=== PATIENT | male | born 1995 | race Caucasian/White ===

== ENCOUNTER 2018-02-06 13:01 | Emergency (ER) | payer SELFPAY ==
[2018-02-06 13:06] VITALS: BP 128/66; BMI 24.4
[2018-02-06 13:34] LABS: BASOPHILS % (AUTO) 0.7 % (0.2-1.0); EOSINOPHILS # (AUTO) 0.1 x10^3/uL (0.0-0.2); HEMATOCRIT 44.9 % (42.0-54.0); HEMOGLOBIN 15.7 g/dL (13.5-18.0); LYMPHOCYTES # (AUTO) 1.5 X10^3/uL (1.3-2.9); LYMPHOCYTES % (AUTO) 33.3 % (21.0-51.0); MEAN CORPUSCULAR HEMOGLOBIN 31.5 pg (27.0-34.0); MEAN PLATELET VOLUME 6.8 fL (7.4-11.0); MONOCYTES # (AUTO) 0.4 x10^3/uL (0.3-0.8); MONOCYTES % (AUTO) 9.5 % (0.0-13.0); NEUTROPHILS # (AUTO) 2.5 x10^3/uL (2.2-4.8); NEUTROPHILS % (AUTO) 53.5 % (42.0-75.0); PLATELET COUNT 284 X10^3/uL (150.0-450.0); RED BLOOD COUNT 4.99 X10^6/uL (4.7-6.0); RED CELL DISTRIBUTION WIDTH 12.6 % (11.6-16.5); WHITE BLOOD COUNT 4.6 X10^3/uL (3.6-10.0)
[2018-02-06 13:40] LABS: ALANINE AMINOTRANSFERASE 20 Units/L (12-78); ALBUMIN 4.1 g/dL (3.4-5.0); ALKALINE PHOSPHATASE 67 Units/L (46-116); AMYLASE 72 Units/L (25-115); ASPARTATE AMINO TRANSFERASE 13 Units/L (15-37); BLOOD UREA NITROGEN 12 mg/dL (7-18); CHLORIDE 103 mmol/L (98-107); CREATININE 0.92 mg/dL (0.70-1.30); LIPASE 112 Units/L (73-393); SODIUM 139 mmol/L (136-145); eGFR BLACK RACES > 60 (>60); eGFR NON BLACK RACES > 60 (>60)
[2018-02-06] MEDS ORDERED: ZOFRAN INJ 4 MG VIAL IVP ONE (14:05)
[2018-02-06] MEDS ORDERED: PEPCID 20 MG IV PREMIX* 20 MG/50 ML BAG IV ONE ×2 (14:05→14:10)
[2018-02-06] MEDS ORDERED: TORADOL 30 MG VIAL IVP ONE (14:05)
--- NOTE | 2018-02-06 14:05 | DR.ABDMALE ---
HPI - Time seen Time seen: 13:45 - PCP Primary Care Physician: carlyle - HPI comment HPI Comment: PAIN INCREASES WITH FOOD INTAKE. NO FEVER. NO DYSURIA OR HEMATURIA. - Complaint Chief Complaint Doctors Comments: RUQ ABDOMINAL PAIN TIMES ONE 8 DAYS THAT IS GETTING WORSE. Chief Complaint:: pt stated he has been right upper abd pain for 1.5 weeks. its hurts more after he eats and very nauseated. - Reviewed Nurses Notes Review: Yes - Mode of arrival Mode of Arrival: Ambulatory - Timing Onset of Chief Complaint: 01/29/18 Came on: Suddenly - Duration Duration: Constant Duration: Days - Location Location: RUQ - Severity Severity: Moderate - Quality Quality: Sharp - Context Onset: Suddenly History of: None - Modifying factors Worsening Factors: Food Improving Factors: Nothing - Associated signs and symptoms Associated Signs and Symptoms: Nausea PMH - PMH Past Medical History: No Past Surgical History: No - Family History History of Family Medical Conditions: No - Social History Does patient currently use any type of tobacco product: No Have you used tobacco products in the last 12 months: No Type of Tobacco Use: None Does any household member use tobacco: No Alcohol Use: None Do you use any recreational Drugs:: No Lives With: Family Lives Where: Home - infectious screening In the last 2 months have you had wt loss of >10#?: NO Have you had fever, night sweats or hemotysis?: No Have you traveled outside the country in the last 6 months?: No Isolation: Standard ROS - Review of Systems Constitutional: No Symptoms Reported Eyes: No Symptoms Reported ENTM: No Symptoms Reported Respiratoy: No Symptoms Reported Cardiovascular: No Symptoms Reported Gastrointestinal/Abdominal: Abdominal Pain (RUQ), Nausea Genitourinary: No Symptoms Reported. negative: Dysuria, Frequency, Hematuria Neurological: No Symptoms Reported Musculoskeletal: No Symptoms Reported Integumentary: No Symptoms Reported Hematologic/Lymphatic: No Symptoms Reported Endocrine: No Symptoms Reported All Other Systems: Reviewed and Negative PE - Vital Signs Vital Signs: Temp Pulse Resp BP Pulse Ox 02/06/18 13:01 98.9 F 87 16 128/66 99 12/06/12 09:44 144/67 - General Limitations: No Limitations General Appearance: Alert - Head Head Exam: Normal Inspection - Eyes Eye exam: Normal Appearance - ENT ENT Exam: Normal External Ear Exam - Neck Neck Exam: Normal Inspection - Chest Chest Inspection: Symmetric Chest Wall Rise - Respiratory Respiratory Exam: Normal Lung Sounds Bilat Respiratory Exam: Bilateral Clear to Auscultation - Cardiovascular Cardiovascular Exam: Regular Rate, Normal Rhythm, Normal Heart Sounds - Abdominal Exam Abdominal Exam: Normal Bowel Sounds, Soft, Tenderness Abdominal Tenderness: RUQ, Moderate - Rectal Rectal Exam: Deferred - Back Back Exam: Normal Inspection - Extremeties Extremities Exam: Normal Inspection - Exam: Male: Deferred - Neurologic Neurological Exam: Alert, Oriented X3 - Psychiatric Psychiatric Exam: Normal Affect, Normal Mood - Skin Skin Exam: Normal Color MDM - Additional Information Obtained From Additional information provided by: Family - Differential Diagnosis Differential Diagnosis: Bowel Obstruction, Cholcystitis, Cholelethiasis, Diverticular disease, Gastritus/PUD, Gastroenteritis, Pancreatitis, Urinary tract infection, Urolithiasis Course - Treatment Treatment: SEE ORDERS. - Reevaluation 1st: Improved (PAIN IMPROVE WITH MEDS IN ED.) - Consultation Consultation Comments: CONSULT SURGERY. DR. GUERRA IN ED TO SEE PATIENT.IF US GB NEGATIVE, SEE HIM IN AM IN THE OFFICE. TO D/C HOME WITH ANDREWIA. - Education/Counseling Education/Counseling: Patient, Family, Education Educated On: Treatment, Diagnosis, Needs for Follow Up ROR - Labs Reviewed Laboratory Results Reviewed?: Yes Result Diagrams: 02/06/18 13:20 02/06/18 13:20 Laboratory: WBC 4.6 X10^3/uL (3.6-10.0) 02/06/18 13:20 RBC 4.99 X10^6/uL (4.7-6.0) 02/06/18 13:20 Hgb 15.7 g/dL (13.5-18.0) 02/06/18 13:20 Hct 44.9 % (42.0-54.0) 02/06/18 13:20 MCV 90.0 fL (80.0-100.0) 02/06/18 13:20 MCH 31.5 pg (27.0-34.0) 02/06/18 13:20 MCHC 35.0 g/dL (33.0-35.0) 02/06/18 13:20 RDW 12.6 % (11.6-16.5) 02/06/18 13:20 Plt Count 284 X10^3/uL (150.0-450.0) 02/06/18 13:20 MPV 6.8 fL (7.4-11.0) L 02/06/18 13:20 Neut % (Auto) 53.5 % (42.0-75.0) 02/06/18 13:20 Lymph % (Auto) 33.3 % (21.0-51.0) 02/06/18 13:20 [place] % (Auto) 9.5 % (0.0-13.0) 02/06/18 13:20 Eos % (Auto) 3.0 % (0.9-2.9) H 02/06/18 13:20 Baso % (Auto) 0.7 % (0.2-1.0) 02/06/18 13:20 Neut # (Auto) 2.5 x10^3/uL (2.2-4.8) 02/06/18 13:20 Lymph # (Auto) 1.5 X10^3/uL (1.3-2.9) 02/06/18 13:20 [place] # (Auto) 0.4 x10^3/uL (0.3-0.8) 02/06/18 13:20 Eos # (Auto) 0.1 x10^3/uL (0.0-0.2) 02/06/18 13:20 Baso # (Auto) 0.0 X10^3/uL (0.0-0.1) 02/06/18 13:20 Absolute Nucleated RBC 0.1 /100WBC 02/06/18 13:20 Sodium 139 mmol/L (136-145) 02/06/18 13:20 Corrected Sodium TNP 02/06/18 13:20 Potassium 4.2 mmol/L (3.5-5.1) 02/06/18 13:20 Chloride 103 mmol/L (98-107) 02/06/18 13:20 Carbon Dioxide 31.0 mmol/L (21-32) 02/06/18 13:20 BUN 12 mg/dL (7-18) 02/06/18 13:20 Creatinine 0.92 mg/dL (0.70-1.30) 02/06/18 13:20 Est GFR (MDRD) Af Amer > 60 (>60) 02/06/18 13:20 Est GFR (MDRD) Non-Af > 60 (>60) 02/06/18 13:20 Glucose 92 mg/dL (65-99) 02/06/18 13:20 Calcium 9.0 mg/dL (8.5-10.1) 02/06/18 13:20 Corrected Calcium TNP 02/06/18 13:20 Total Bilirubin 0.80 mg/dL (0.2-1.0) 02/06/18 13:20 AST 13 Units/L (15-37) L 02/06/18 13:20 ALT 20 Units/L (12-78) 02/06/18 13:20 Alkaline Phosphatase 67 Units/L (46-116) 02/06/18 13:20 Total Protein 8.0 g/dL (6.4-8.2) 02/06/18 13:20 Albumin 4.1 g/dL (3.4-5.0) 02/06/18 13:20 Globulin 3.9 g/dL (2.5-4.5) 02/06/18 13:20 Albumin/Globulin Ratio 1.1 Ratio (1.1-2.1) 02/06/18 13:20 Amylase 72 Units/L (25-115) 02/06/18 13:20 Lipase 112 Units/L (73-393) 02/06/18 13:20 Specimen Type Clean catch urine 02/06/18 15:28 Urine Color Yellow (YELLOW) 02/06/18 15:28 Urine Appearance Clear (CLEAR) 02/06/18 15:28 Urine pH 7.0 (5.0 - 8.0) 02/06/18 15:28 Ur Specific [place] 1.015 (1.000-1.030) 02/06/18 15:28 Urine Protein Negative (NEGATIVE) 02/06/18 15:28 Urine Glucose (UA) Negative (NEGATIVE) 02/06/18 15:28 Urine Ketones Negative (NEGATIVE) 02/06/18 15:28 Urine Occult Blood Negative (NEGATIVE) 02/06/18 15:28 Urine Nitrite Negative (NEGATIVE) 02/06/18 15:28 Urine Bilirubin Negative (NEGATIVE) 02/06/18 15:28 Urine Urobilinogen Normal (NORMAL) 02/06/18 15:28 Ur Leukocyte Esterase Negative (NEGATIVE) 02/06/18 15:28 Urine Opiates Screen Negative (NEG=<300) 02/06/18 15:28 Urine Methadone Screen Negative (NEG=<300) 02/06/18 15:28 Ur Barbiturates Screen Negative (NEG=<200) 02/06/18 15:28 Ur Phencyclidine Scrn Negative (NEG=<25) 02/06/18 15:28 Ur Amphetamines Screen Negative (NEG=<1000) 02/06/18 15:28 U Benzodiazepines Scrn Negative (NEG=<200) 02/06/18 15:28 Urine Cocaine Screen Negative (NEG=<300) 02/06/18 15:28 U Marijuana (THC) Screen Negative (NEG=<50) 02/06/18 15:28 - XRAY XRAY Interpreted by: Radiologist XRAY Findings: REPORT DISCUSS WITH PATIENT AND FAMILY. - Diagnosis Discharge Problem: Abnormal CT of the abdomen Abdominal pain Qualifiers: Abdominal location: right upper quadrant Qualified Code(s): R10.11 - Right upper quadrant pain - Discharge Plan Disposition: 01 HOME, SELF-CARE Condition: Stable Prescriptions: Hydrocodone-Acet 5 mg/325 mg [[place] 5/325 mg Tab] 1 tab PO Q6H PRN #8 tab PRN Reason: Pain Ranitidine HCl [ZANTAC TAB 150 MG *] 150 mg PO BID #60 tab - Follow ups/Referrals Follow ups/Referrals: [facility],None [Primary Care Provider] - 3 days BRIGITTE GUERRA [STAFF PHYSICIAN] - 02/07/18 - Instructions Instructions: Abdominal Pain, Adult, [id number] Additional Instructions: RETURN TO ED IF WORSE. YOUR CT IS ABNORMAL ALSO.
[2018-02-06] MEDS ORDERED: ZOFRAN INJ 4 MG VIAL ONE (14:10)
[2018-02-06] MEDS ORDERED: NS 1000 ML 1,000 ML ONE (14:11)
[2018-02-06] MEDS ORDERED: TORADOL 30 MG VIAL ONE (14:11)
[2018-02-06] MEDS ORDERED: NS 1000 ML 1,000 ML IV SCH (15:00)
--- NOTE | 2018-02-06 15:04 | CT ---
CT abdomen and pelvis without contrast Indication: Right upper quadrant pain after eating Technique: Helical CT images of the abdomen and pelvis were obtained without IV contrast. Reformatted images in the coronal and sagittal planes were also generated for review. Comparison: None Findings: Lung bases are clear. No aggressive osseous lesions are identified. Within the limits of a noncontrast exam, the liver, nondistended gallbladder, spleen, pancreas and ad renals are grossly unremarkable. Both kidneys and visualized ureters are normal without radiopaque st ones or hydroureteronephrosis. Evaluation of the GI tract is limited without intravenous or enteric contrast. Given these limitation s, there is moderate stool throughout the colon, suggestive for constipation. There are also small me tallic densities which appear to be scattered throughout the GI tract, which could possibly represent ingested foreign metallic bodies. The appendix is not identified. There is no bowel obstruction or g ross inflammation. The abdominal aorta is normal in caliber. The urinary bladder is unremarkable. No free air, significa nt free fluid or bulky lymphadenopathy is identified. Impression: Several small metallic densities scattered throughout the GI tract, possibly representing ingested fo reign metallic bodies. Correlation with patient history is advised. Otherwise, no acute abnormality identified to explain patient's symptoms, within the limitations of a noncontrast exam. Constipation. Reported By:
[2018-02-06 15:46] LABS: BILIRUBIN,URINE NEGATIVE (NEGATIVE); BLOOD/HEMOGLOBIN,URINE NEGATIVE (NEGATIVE); GLUCOSE, URINE NEGATIVE (NEGATIVE); KETONES,URINE NEGATIVE (NEGATIVE); LEUKOCYTE ESTERASE ,URINE NEGATIVE (NEGATIVE); NITRITES,URINE NEGATIVE (NEGATIVE); PROTEIN,URINE NEGATIVE (NEGATIVE); UROBILINOGEN,URINE NORMAL (NORMAL)
[2018-02-06 15:49] LABS: APPEARANCE,URINE CLEAR (CLEAR); COLOR,URINE YELLOW (YELLOW)
[2018-02-06] MEDS ORDERED: DILAUDID INJ IVP ONE (16:55)
[2018-02-06] MEDS ORDERED: DILAUDID INJ ONE (16:56)
--- NOTE | 2018-02-06 17:53 | US ---
Gallbladder sonogram Indication:Abdominal pain Comparison: None available Technique: Multiple smith scale and color flow Doppler images of the right upper quadrant were obtaine d. Findings: The gallbladder fails to demonstrate evidence for cholelithiasis or layering sludge.No pericholecysti c fluid or gallbladder wall thickening can be observed. The common bile duct is unremarkable measuring 4 mm. IMPRESSION: Normal gallbladder sonogram. Reported By:
== END 2018-02-06 18:11 | disposition home or self-care (01) ==
LOC: ER 13:20
DX: R10.11 Right upper quadrant pain (principal); R93.5 Abnormal findings on diagnostic imaging of other abdominal regions, including retroperitoneum; K59.00 Constipation, unspecified
CPT/HCPCS: 36415; 74176; 76705; 80053; 80307; 81003; 82150; 83690; 85025; 96365; 96367; 96374; 96375; 99283; A4222; S0028; G0434; J1170; J1885; J2405

== ENCOUNTER → 2018-02-14 | Outpatient (CLI) | payer SELFPAY ==
[2018-02-06 13:06] VITALS: BP 128/66
--- NOTE | 2018-02-14 13:11 | NM ---
HISTORY: Right upper quadrant pain, nausea, vomiting Study: Nuclear medicine HIDA scan with ejection fraction Comparison: Gallbladder ultrasound 02/06/2018, CT abdomen and pelvis 02/06/2018 Technique: Multiple scintigraphic images of the abdomen were obtained the intravenous administration of 5.4 mCi of technetium labeled Choletec. Following distention of the gallbladder with radiotracer, 8 oz of PO Ensure Plus was administered and an estimated gallbladder ejection fraction was calculated. Findings: Homogeneous uptake of radiotracer is seen throughout the liver. The intrahepatic biliary ductal syst em is observed normally. The common hepatic and common bile duct appear grossly unremarkable with no rmal biliary-bowel transit. The gallbladder is observed to fill normally. After PO administration of 8 oz of Ensure Plus, a gallbladder ejection fraction of 18.3% (normal > 35 %) was observed. IMPRESSION: Reduced gallbladder ejection fracture of 18.3%, compatible with gallbladder dyskinesia. Reported By:
== END ==
LOC: RAD 10:40
PROVIDERS: ATTEND Surgery
DX: R10.84 Generalized abdominal pain (principal)
CPT/HCPCS: 78227; A9537

== ENCOUNTER → 2018-02-21 | Outpatient (CLI) | payer SELFPAY ==
[2018-02-06 13:06] VITALS: BP 128/66
[2018-02-21 10:31] LABS: BASOPHILS # (AUTO) 0.1 X10^3/uL (0.0-0.1); BASOPHILS % (AUTO) 1.2 % (0.2-1.0); EOSINOPHILS # (AUTO) 0.1 x10^3/uL (0.0-0.2); EOSINOPHILS % (AUTO) 2.2 % (0.9-2.9); HEMATOCRIT 43.8 % (42.0-54.0); HEMOGLOBIN 15.5 g/dL (13.5-18.0); LYMPHOCYTES # (AUTO) 1.5 X10^3/uL (1.3-2.9); MEAN CORPUSCULAR HEMOGLOBIN 31.2 pg (27.0-34.0); MEAN CORPUSCULAR HGB CONC 35.3 g/dL (33.0-35.0); MEAN CORPUSCULAR VOLUME 88.4 fL (80.0-100.0); MONOCYTES # (AUTO) 0.4 x10^3/uL (0.3-0.8); MONOCYTES % (AUTO) 8.1 % (0.0-13.0); NEUTROPHILS # (AUTO) 2.6 x10^3/uL (2.2-4.8); NEUTROPHILS % (AUTO) 56.5 % (42.0-75.0); PLATELET COUNT 285 X10^3/uL (150.0-450.0); RED BLOOD COUNT 4.96 X10^6/uL (4.7-6.0); RED CELL DISTRIBUTION WIDTH 12.6 % (11.6-16.5); WHITE BLOOD COUNT 4.6 X10^3/uL (3.6-10.0)
[2018-02-21 10:37] LABS: ALANINE AMINOTRANSFERASE 23 Units/L (12-78); ALBUMIN 4.1 g/dL (3.4-5.0); ALKALINE PHOSPHATASE 65 Units/L (46-116); ASPARTATE AMINO TRANSFERASE 13 Units/L (15-37); BLOOD UREA NITROGEN 17 mg/dL (7-18); CALCIUM 8.8 mg/dL (8.5-10.1); CARBON DIOXIDE 31.2 mmol/L (21-32); CHLORIDE 103 mmol/L (98-107); CREATININE 1.03 mg/dL (0.70-1.30); SODIUM 139 mmol/L (136-145); TOTAL PROTEIN 8.1 g/dL (6.4-8.2); eGFR BLACK RACES > 60 (>60); eGFR NON BLACK RACES > 60 (>60)
== END ==
LOC: LAB 10:09
PROVIDERS: ATTEND Surgery
DX: K82.8 Other specified diseases of gallbladder (principal)
CPT/HCPCS: 36415; 80053; 85025

== ENCOUNTER 2018-02-24 08:09 | Day surgery (SDC) | payer SELFPAY ==
[2018-02-24] MEDS ORDERED: LR 1000 ML IV 1,000 ML IV ONE (08:25)
[2018-02-24] MEDS ORDERED: ANCEF 1 GM IV PREMIX* 1 GM/50 ML BAG IV ONE (08:25)
[2018-02-24] MEDS ORDERED: FENTANYL INJ 250 mcg ONE (10:36)
[2018-02-24] MEDS ORDERED: NS IRRIGATION 1000 ML 1,000 ML IR ONE (11:06)
[2018-02-24] MEDS ORDERED: BENADRYL INJ 50 MG VIAL IVP PRN (11:33)
[2018-02-24] MEDS ORDERED: ZOFRAN INJ 4 MG VIAL IVP PRN (11:33)
[2018-02-24] MEDS ORDERED: PHENERGAN INJ 25 MG IVP PRN (11:33)
[2018-02-24] MEDS ORDERED: REGLAN INJ 10 MG VIAL IVP PRN (11:33)
[2018-02-24] MEDS: DILAUDID INJ IVP PRN ×2 (12:19→12:24)
[2018-02-24] MEDS ORDERED: PHENERGAN INJ 25 MG ONE (12:54)
[2018-02-24 13:46] VITALS: BP 125/76
[2018-02-24] MEDS ORDERED: QUELICIN (OR ANECTINE) ONE (15:05)
[2018-02-24] MEDS ORDERED: DIPRIVAN VIAL ONE (15:05)
[2018-02-24] MEDS ORDERED: NORCURON INJ 10 MG VIAL ONE (15:05)
[2018-02-24] MEDS ORDERED: ROBINUL ONE (15:05)
[2018-02-24] MEDS ORDERED: NEOSTIGMINE INJ ONE (15:05)
[2018-02-24] MEDS ORDERED: SUPRANE IN ONE (15:05)
[2018-02-24] MEDS ORDERED: XYLOCAINE 2 % (PLAIN) ONE (15:05)
[2018-02-24] MEDS ORDERED: VERSED ONE (15:05)
[2018-02-24] MEDS ORDERED: TORADOL 30 MG VIAL ONE (15:05)
[2018-02-24] MEDS ORDERED: ZOFRAN INJ 4 MG VIAL ONE (15:05)
== END 2018-02-24 13:46 | disposition home or self-care (01) | DRG 446 ==
LOC: SURG1 08:09
PROVIDERS: ATTEND Surgery
PROC: 0FT44ZZ Resection of Gallbladder, Percutaneous Endoscopic Approach (ICD-10-PCS; principal; 2018-02-24 09:00)
DX: K81.9 Cholecystitis, unspecified (principal); K82.8 Other specified diseases of gallbladder
CPT/HCPCS: A4216; A4222; J0330; J0690; J1170; J1885; J2001; J2250; J2405; J2550; J2710; J3010; J3490; J7120